=== PATIENT | female | born 1995 | race Two or more races ===

== ENCOUNTER 2019-01-20 15:46 | Emergency (ER) | payer OTHER ==
[~2019-01-20] VITALS: Ht 157.5 cm; Wt 73.5 kg
[2019-01-20 16:13] VITALS: Ht 157.5 cm; Wt 73.5 kg
[2019-01-20 18:03] LABS: BASOPHIL % 0.6 % (0-2); PLATELET COUNT 320 x10^3mcL (130-400); RED CELL DISTRIBUTION WIDTH 13.8 % (11.5-14.5)
[2019-01-20 18:08] LABS: CALCIUM 9.4 mg/dL (8.5-10.1); CARBON DIOXIDE 23.9 mmol/L (21-32); CHLORIDE SERUM 104 mmol/L (98-107); CREATININE SERUM 0.7 mg/dL (0.6-1.0); GFR1 > 60 mL/min; GLUCOSE SERUM 96 mg/dL (74-106); POTASSIUM SERUM 3.8 mmol/L (3.5-5.1); SODIUM SERUM 140 mmol/L (136-145)
[2019-01-20 18:12] LABS: ALBUMIN 3.7 g/dL (3.4-5.0); ALKALINE PHOSPHATASE 84 U/L (46-116); ALT/SGPT 29 U/L (14-59); AST/SGOT 11 U/L (15-37); BILIRUBIN TOTAL 0.47 mg/dL (0.20-1.00); LIPASE 113 IU/L (73-393); TOTAL PROTEIN, SERUM 8.2 g/dL (6.4-8.2)
[2019-01-20 18:48] LABS: UA SPECIFIC GRAVITY >=1.030 (1.005-1.035); microscopic required? YES; urine erythrocyte TRACE (NEGATIVE)
[2019-01-20 22:55] VITALS: BP 112/71
== END 2019-01-20 22:55 | disposition home or self-care (01) ==
LOC: ED 15:46
PROVIDERS: Emergency Medicine
DX: N39.0 Urinary tract infection, site not specified (principal); N83.201 Unspecified ovarian cyst, right side
CPT/HCPCS: J0696; J1885; J2270; J2405; J7030

== ENCOUNTER 2019-01-22 18:47 | Inpatient (IN) | payer OTHER ==
[~2019-01-22] VITALS: Ht 152.4 cm; Wt 74.0 kg
[2019-01-22 18:58] VITALS: Ht 152.4 cm; Wt 74.0 kg
--- NOTE | 2019-01-22 20:30 | NUR ---
PT C/O SHARP BILATERAL FLANK PAIN X1 DAY WITH 1 EPISODE OF VOMITING. PT DENIES ANY URINARY S/S HOWEVER STS SHE WAS RECENTLY D/C HERE WITH UTI, KIDNEY STONE, AND OVARIAN DX. PT AAOX4, RESPS E/U, SKIN PINK DRY AND WARM, -N/V AT THIS TIME, PT IN NAD, PLACED ON FULL CM, NSR, AWAITING MSE
--- NOTE | 2019-01-22 20:31 | NUR ---
PT STS NO RELIEF OF PAIN WITH AT HOME PAIN RX TRAMADOL AND MOTRIN
--- NOTE | 2019-01-22 20:35 | NUR ---
PT AMBULATORY WITH STEADY GAIT TO RESTROOM
--- NOTE | 2019-01-22 20:37 | NUR ---
PORTABLE CXR AT BEDSIDE
--- NOTE | 2019-01-22 20:37 | NUR ---
LAB AT BEDSIDE
--- NOTE | 2019-01-22 20:43 | NUR ---
EKG IN PROGRESS
[2019-01-22 20:45] LABS: microscopic required? NO
[2019-01-22 20:56] LABS: BASOPHIL % 0.5 % (0-2); PLATELET COUNT 334 x10^3mcL (130-400); RED CELL DISTRIBUTION WIDTH 13.7 % (11.5-14.5)
--- NOTE | 2019-01-22 20:56 | NUR ---
PT IN POSITION OF COMFORT, WARM BLANKET PROVIDED, RESPS E/U, VSS, PT MEDICATED PER EMAR AND MD ORDER, CALL LIGHT WITHIN REACH, WILL CONTINUE TO MONITOR
[2019-01-22 21:04] LABS: UA SPECIFIC GRAVITY 1.025 (1.005-1.035); urine erythrocyte NEGATIVE (NEGATIVE)
[2019-01-22 21:07] LABS: CARBON DIOXIDE 27.1 mmol/L (21-32); CHLORIDE SERUM 104 mmol/L (98-107); CREATININE SERUM 0.7 mg/dL (0.6-1.0); GFR1 > 60 mL/min; GLUCOSE SERUM 82 mg/dL (74-106); POTASSIUM SERUM 3.8 mmol/L (3.5-5.1); SODIUM SERUM 141 mmol/L (136-145)
[2019-01-22 21:11] LABS: ALBUMIN 3.7 g/dL (3.4-5.0); ALKALINE PHOSPHATASE 83 U/L (46-116); ALT/SGPT 26 U/L (14-59); AST/SGOT 12 U/L (15-37); BILIRUBIN TOTAL 0.33 mg/dL (0.20-1.00); TOTAL PROTEIN, SERUM 8.1 g/dL (6.4-8.2)
--- NOTE | 2019-01-22 21:31 | NUR ---
PT C/O 02/09 FLANK PAIN REQUESTING PAIN MEDICATION, RESPS E/U, IN NAD AT THIS TIME, NSR ON CM MD RIOS MADE AWARE
--- NOTE | 2019-01-22 21:52 | NUR ---
PT IN POSITION OF COMFORT, RESPS E/U, VSS LIGHTS DIMMED PER PT REQUEST AND COMFORT, CALL LIGHT WITHIN REACH
--- NOTE | 2019-01-22 22:11 | NUR ---
REPORT GIVEN TO VIKKI JUAREZOCTAVE BOARD RACKER RM [id number]
[2019-01-22 22:25] LABS: AMPHETAMINE QUAL UR NONE DETECTED (See below)
[2019-01-22 22:28] LABS: MAGNESIUM 2.1 mg/dL (1.8-2.4); PHOSPHOROUS 4.2 mg/dL (2.5-4.9)
[2019-01-22 22:34] VITALS: BP 137/78
[2019-01-22 22:37] LABS: T3 TOTAL 1.28 ng/mL
--- NOTE | 2019-01-22 22:37 | NUR ---
RECEIVED PT FROM ED VIA ALEJANDRA. ORIENTED PT TO ROOM AND SURROUNDINGS. IV NOTED TO RH PATENT AND INTACT. INSTRUCTED PT ON THE USE OF CALL LIGHT FOR ASSISTANCE. ENDORSED PT TO PRIMARY NURSE DARINEL
[2019-01-22 22:38] LABS: FREE T4 0.93 ng/dL (0.76-1.46); FREE THYROXINE INDEX 2.7 ug/dL (1.4-4.5); T4(THYROXINE) 8.4 ug/dL (4.7-13.3)
--- NOTE | 2019-01-22 22:40 | NUR ---
RECEIVED PT FROM LARRY SPRAGUE. PT AOX4. DENIES CYR/DIZZINESS. MED SURG PT, DENIES CP/PRESSURE. DENIES SOB/DIFFICULTY BREATHING, ON RA. IV TO R.HAND, INTACT AND PATENT. BED IN LOWEST POSITION. CALL LIGHT WITHIN REACH. WILL CONTINUE TO MONITOR.
[2019-01-22] MEDS ORDERED: KEFLEX500 M1 PO (22:44)
[2019-01-22] MEDS ORDERED: TRAMADOL HCL50 MG GT (22:44)
[2019-01-22] MEDS ORDERED: MOT600 PO (22:44)
--- NOTE | 2019-01-23 02:20 | NUR ---
PT RESTING IN BED. RR EVEN AND UNLABORED. IN NO ACUTE DISTRESS. CALL LIGHT WITHIN REACH. BED IN LOWEST POSITION. WILL CONTINUE TO MONITOR.
--- NOTE | 2019-01-23 03:20 | NUR ---
ASSUMED CARE OF PT. IN NO ACUTE DISTRESS. BED IN LOWEST POSITION. CALL LIGHT WITHIN REACH. WILL CONTINUE TO MONITOR.
[2019-01-23 05:59] VITALS: BP 110/68
[2019-01-23 08:43] LABS: BASOPHIL % 0.5 % (0-2); PLATELET COUNT 295 x10^3mcL (130-400); RED CELL DISTRIBUTION WIDTH 13.6 % (11.5-14.5)
[2019-01-23 09:07] LABS: CALCIUM 8.8 mg/dL (8.5-10.1); CARBON DIOXIDE 23.9 mmol/L (21-32); CHLORIDE SERUM 106 mmol/L (98-107); CREATININE SERUM 0.7 mg/dL (0.6-1.0); GFR1 > 60 mL/min; GLUCOSE SERUM 99 mg/dL (74-106); POTASSIUM SERUM 3.8 mmol/L (3.5-5.1); SODIUM SERUM 139 mmol/L (136-145)
[2019-01-23 09:51] VITALS: BP 128/44
--- NOTE | 2019-01-23 10:37 | NUR ---
AT 0720 - RECEIVED PATIENT FROM NIGHT NURSE. AWAKE, ALERT AND ORIENTED. NPO FOR POSSIBLE SURGERY. AT 0800 - SEEN BY DR RAINES. RECEIVED ORDER TO CONSENT COSNU[facility]O FOR SURGERY - DIAGNOSTIC LAPAROTOMY WITH POSSIBLE BILATERAL OVARIAN CYSTECTOMY. AT 0810 - CONSUELO HAS SIGNED CONSENT. PREPARED FOR SURGERY, INCLUDIGN CHLORHEXIDINE BODY WIPES. AT 0815 - IV INFUSION OF NS COMMENCED AT 70 ML/HR. REPROT GIVEN TO OR NURSE. SURGERY SCHEDULED FOR 1130. PATIENT MAY HAVE PAIN MEDICATION. AT 0834 - GIVEN MORPHINE 2 MG IV PER EMAR. AT 0855 - PATIENT TAKEN TO SURGERY.
--- NOTE | 2019-01-23 13:48 | NUR ---
AT 1135 - PATIENT BACK IN ROOM FOLLOWING EXPLORATORY LAPAROTOMY AND RIGHT OVARIAN CYSTECTOMY UNDER GENERAL AND LOCAL ANAESTHESIA. PATIENT IS AWAKE, ALERT AND ORIENTED. BP 104/59 HR 68 O2 SAT 95% ON 2L VIA NC. DRESSING TO LOWER ABDOMEN IS DRY AND INTACT. IV INFUSION OF NS RESUMED AT 70 ML/HR. AT 1232 - MEDICATED WITH IV MORPHINE PER EMAR FOR C/O PULLING PAIN IN LOWER ABDOMEN. AT 1315 - MEDICATED WITH IV ZOFRAN FOR NAUSEA AND VOMITING. PATIENT HAS CLEAR LIQUID DIET BUT HAS NOT YET HAD ANYTHING PO. AT 1330 - REPORTS FEELING BETTER.
--- NOTE | 2019-01-23 14:35 | NUR ---
AMBULATED TO BATHROOM AND BACK TO BED. VOIDED POS-OP. PARENTS AT BEDSIDE.
[2019-01-23 18:07] VITALS: BP 104/64
--- NOTE | 2019-01-23 19:05 | NUR ---
AT 1600 - PATIENT REQUESTED TO SPEAK WITH DR CANO. EXPRESSED WISH TO STAY IN HOSPITAL TODAY. DR CANO PER PHONE - OKAY FOR PATIENT TO STAY AND BE DISCHARGED TOMORROW. AT 1645 - MEDICATED WITH MORPHINE PER EMAR FOR ABDOMINAL PAIN. AT 1840 - AWAKE, ALERT AND ORIENTED. VSS. AFEBRILE. IV IFNSUING NS AT 70 ML/HR. TOLERATING CLEAR LIQUIDS PO. DRESSING REMAINS DRY AND INTACT. AMBULATES TO BATHROOM FOR TOILET NEEDS. ENCOURAGED USE OF INSENTIVE SPIROMETER. WILL ENDORSE CARE TO NIGHT NURSE.
--- NOTE | 2019-01-23 19:45 | NUR ---
PT A/A/O X4. DENIES DIZZINESS AND HEADACHE. BREATH SOUNDS CLEAR. BREATHING EVEN AND UNLABORED ON ROOM AIR. DENIES CHEST PAIN AND PRESSURE. BOWEL SOUNDS ACTIVE. NO C/O N/V AND C/O 5/10 LEVEL ABDOMINAL PAIN. DENIES NEED FOR PAIN MEDICATION THUS FAR. PT ADMITS TO BURPING, PASSING GAS AND VOIDING. DRESSING ON THE LOWER ABDOMEN C/D/I. IV INTACT ON THE RIGHT HAND INFUSING WITH NS AT 70 ML/HR. MADE PT COMFORTABLE. PLACED CALL LIGHT WITH IN REACH. WILL CONTINUE TO MONITOR.
--- NOTE | 2019-01-23 20:10 | NUR ---
PT VOMITED 500 ML OF BURGUNDY COLORED FLUID WITH COFFEE GROUND SEDIMENTS ON THE EMESIS BAG. DR. HERRON NOTIFIED. WILL CONTINUE TO MONITOR.
[2019-01-23 20:12] VITALS: BP 98/65
--- NOTE | 2019-01-23 20:24 | NUR ---
PT C/O NUMBNESS ON BLE WORSE ON LLE. PT DESCRIBING IT "FEELING PINS AND NEEDLES AT FIRST AND LOOSING SENSATION AFTER. PT ALSO STATED FEELING NUMBNESS ON BUE. PT EXPRESSED THE NUMBNESS STARTING AFTER VOMITING. DR HERRON NOTIFIED AND AT PATIENTS BEDSIDE WITH 2 OTHER DOCTORS ASSESSING THE PT. WILL CONTINUE TO MONITOR.
--- NOTE | 2019-01-23 20:46 | NUR ---
DR. WEIR AND DR. HERRON WITH 2 OTHER STUDENT DOCTORS SPEAKING WITH THE PT. WILL CONTINUE TO MONITOR.
--- NOTE | 2019-01-23 21:37 | NUR ---
PT WITH WARRANTY ADMINISTRATOR AT BEDSIDE. DRESSING ON THE ABDOMEN TAKEN OFF INTERMEDIATE ON THE LOWER ABDOMEN FOR WARRANTY ADMINISTRATOR TO BE ABLE TO SCAN THE PT. WILL REINFORCE DRESSING WHEN ULTRASOUND IS DONE.
[2019-01-23 21:47] LABS: CALCIUM 8.8 mg/dL (8.5-10.1); CARBON DIOXIDE 25.2 mmol/L (21-32); CHLORIDE SERUM 103 mmol/L (98-107); CREATININE SERUM 0.6 mg/dL (0.6-1.0); GFR1 > 60 mL/min; GLUCOSE SERUM 113 mg/dL (74-106); POTASSIUM SERUM 4.5 mmol/L (3.5-5.1); SODIUM SERUM 139 mmol/L (136-145)
--- NOTE | 2019-01-23 22:11 | NUR ---
DR. WEIR AND DR. MOSER AT PATIENTS BEDSIDE. WILL CONTINUE TO MONITOR.
--- NOTE | 2019-01-23 22:22 | NUR ---
PT STATING PAIN LEVEL IS STILL 8 OUT OF 10. GAVE PT NORCO PO. PT TOLERATED IT WELL. ULTRASOUND DONE. DRESSING ON THE LOWER ABDOMEN REINFORCED. WILL CONTINUE TO MONITOR.
--- NOTE | 2019-01-23 23:07 | NUR ---
DR. WEIR NOTIFIED VIA TELEPHONE OF PT HAVING CONTRACTIONS ON GABO CALVES WITH NUMBNESS MORE ON THE LEFT THAN THE RIGHT AND NOT BEING ABLE TO FREELY MOVE IT AND PT FEELING NUMBNESS ON GABO UPPER EXTREMITY STRONGER TO THE JETHRO THAT THE PT CAN NOT LIFT UP LEFT ARM AT ONE POINT.
--- NOTE | 2019-01-23 23:11 | NUR ---
DR. WEIR AND DR. MOSER AT PATIENTS BEDSIDE. WILL CONTINUE TO MONITOR.
--- NOTE | 2019-01-24 02:45 | NUR ---
PT RESTING WITH EYES CLOSED. NO DISTRESS AND DISCOMFORT NOTED. WILL CONTINUE TO MONITOR.
[2019-01-24 05:47] VITALS: BP 128/68; BP 98/66
--- NOTE | 2019-01-24 06:15 | NUR ---
PT RESTING WITH EYES CLOSED. EASILY AROUSABLE WITH VERBAL STIMULI. NO C/O PAIN THUS FAR. STILL C/O SOME NUMBNESS THAT MAKES PT HARD TO GET UP TO THE BEDSIDE COMMODE WITH OUT ASSIST. MADE PT COMFORTABLE. WILL ENDORSE TO THE AM NURSE ACCORDINGLY.
[2019-01-24 07:24] LABS: BASOPHIL % 0.2 % (0-2); PLATELET COUNT 300 x10^3mcL (130-400); RED CELL DISTRIBUTION WIDTH 13.6 % (11.5-14.5)
[2019-01-24 07:44] LABS: CALCIUM 8.9 mg/dL (8.5-10.1); CARBON DIOXIDE 21.9 mmol/L (21-32); CHLORIDE SERUM 106 mmol/L (98-107); CREATININE SERUM 0.6 mg/dL (0.6-1.0); GFR1 > 60 mL/min; GLUCOSE SERUM 96 mg/dL (74-106); POTASSIUM SERUM 3.6 mmol/L (3.5-5.1); SODIUM SERUM 140 mmol/L (136-145)
--- NOTE | 2019-01-24 08:33 | NUR ---
AT 0730 - RECEIVED PATIENT FROM NIGHT NURSE. AWAKE, ALERT AND ORIENTED. PATIENT REPROTS THAT NUMBNESS AND WEAKNESS IN LEFT ARM HAS IMPROVED. GOOD RADIAL ARM SAW OPERATOR BUT PATIENT STIL HAS SOME NUMBNESS AND WEAKNESS IN BLE WITH L>R. DRESSING TO LOWER ABDOMEN IS DRY AND INTACT. C/O SOME PAIN. DENEIS NAUSEA. SAT UP IN BED FOR CLEAR LIQUID BREAKFAST. AT 0740 - ASSISTED TO BEDSIDE COMODE TO VOID. PATIENT WAS ABLE TO STAND AND MAKE 2 STEPS. APPEARS TO HAVE MODERATE LLE WEAKNESS WITH SOME ASSOCIATED STIFFNESS. AT 0804 - MEDICATED WITH NORCO PER EMAR.
[2019-01-24 09:23] VITALS: BP 113/75
--- NOTE | 2019-01-24 10:13 | NUR ---
PATIENT REPORTS MODERATE RELIEF OF PAIN AFTER RECEIVING NORCO. HAS BEEN SEEN BY TAYLER CASTILLO. RECEIVED ORDER FOR PT EVAL.
[2019-01-24 12:34] VITALS: BP 113/75
--- NOTE | 2019-01-24 14:26 | NUR ---
AT 1120 - PATIENT AMBULATED WITH PHYSICAL THERAPY. PT RECOMMENDS HOME HEALTH FOR PT. AT 1240 - RECEIVED ORDER FOR DC HOME WITH HOME HEALTH. AT 1300 - PATIENT HAS EATEN LUNCH. HAS BEEN PROVIDED WITH WALKER FOR HOME USE. AT 1330 - DRESSING TO SURGICAL INCISION CHANGED. PHOTO DOCUMENTED. PATIENT INSTRUCTED IN CARE OF INCISION AND S&S OF INFECTION. PATIENT EXPRESSED CONCERN THAT SHE IS NOT GETTIGN A PRESCRIPTION FOR PAIN MEDICATION FOR HOME. ACCORDING TO CHARGE NURSE. TAYLER CASTILLO IS COMING BACK TO THE HOSPITAL AND WILL BE ASKED TO PROVIDE ONE. AT 1400 - PATIENT IS DRESSED AND RESTING ON THE BED.
--- NOTE | 2019-01-24 16:14 | NUR ---
GRACIEL UNABLE TO OBTAIN PRESCRIPTION FOR PAIN MEDICATIONS. PATIENT REFUSING TO BE DISCHARGED ON HOME MEDS OF MOTRIN AND TRAMADOL - SAYS THAT THEY "DON'T WORK". CALL PLACED FOR TAYLER CASTILLO TO NOTIFY.
[2019-01-24 17:08] VITALS: BP 126/84
--- NOTE | 2019-01-24 17:20 | NUR ---
PATIENT AMBULATED TO BATHROOM AND BACK TO BED USING WALKER. PATIENT CONTINUES TO EXPRESS CONCERN ABOUT GOING HOME WITHOUT PRESCRIPTION FOR "STRONGER PAIN MEDICATION".
--- NOTE | 2019-01-24 18:37 | NUR ---
ACCORDING TO CHARGE NURSE, PATIENT WILL BE STAYING IN HOSPITAL TONIGHT. VSS. AFEBRILE. TOLERATING REGULAR DIET. PAIN UNDER CONTROL WITH NORCO PER EMAR. WILL ENDORSE CARE TO NIGHT NURSE.
--- NOTE | 2019-01-24 20:13 | NUR ---
PT RESTING IN BED COMFORTABLY. DENIES PAIN AT THIS TIME. A/O X4, CALM AND COOPERATIVE. MED/SURG. DENIES CHEST PAIN, N/V, DIZZINESS, OR PALPATATIONS. PALPABLE PULSES, NO EDEMA NOTED. BREATHING EVEN AND UNLABORED ON RA. BOWEL SOUNDS ACTIVE X4. RLQ TENDERNESS ON PALPATION. LLE WEAKNESS NOTED. WALKER AT BEDSIDE. SURGICAL INCISION COVERED WITH ISLAND DRESSING, CDI. DENIES PAIN AT SURGICAL SITE. RH IV CDI. BED AT LOWEST POSITION. CALL LIGHT WITHIN REACH. WILL CONTINUE TO MONITOR.
[2019-01-24 21:54] VITALS: BP 102/56
--- NOTE | 2019-01-24 23:57 | NUR ---
PT COMPLAINING OF 8/10 PAIN IN ABD. MEDICATED WITH PRN NORCO. WILL MONITOR.
--- NOTE | 2019-01-25 | NUR ---
PT RESTING IN BED COMFORTABLY. NO S/S OF PAIN AT THIS TIME. BREATHING EVEN AND UNLABORED ON RA. BED AT LOWEST POSITION. CALL LIGHT WITHIN REACH. WILL CONTINUE TO MONITOR.
[2019-01-25 05:41] VITALS: BP 116/68
--- NOTE | 2019-01-25 06:34 | NUR ---
PT RESTING IN BED COMFORTABLY. DENIES PAIN AT THIS TIME. ABD BINDER PROVIDED THIS SHIFT. PT STATES INCREASED COMFORTABILITY WITH BINDER INTACT. NO SIGNIFICANT CHANGES THIS SHIFT. BED AT LOWEST POSITION. CALL LIGHT WITHIN REACH. WILL ENDORSE TO DAY NURSE.
--- NOTE | 2019-01-25 07:20 | NUR ---
RECEIVED PT FROM NOC RN. PT FOUND RESTING IN BED WITH BOTH EYES CLOSED. NO S/S OF ACUTE DISTRESS. EASILY AROUSABLE TO VERBAL STIMULI. FACE SYMMETRICAL. SPEECH CLEAR. SPEAKS [place]. AA/OX4. PERRLA, BRISK, SIZE 3 OU. COMPLAINT OF MILD NUMBNESS TO BLE, LEFT WORSE THAN RIGHT. REPORTS IMPROVEMENT SINCE YESTERDAY. USES WALKER TO AMBULATE. WALKER AT BEDSIDE. WOUND TO RIGHT PELVIS COVERED BY DRESSING CDI. ABDOMINAL BINDER IN PLACE. NO N/V. NO SOB ON ROOM AIR. CALM/COOPERATIVE. RR EVEN/UNLABORED. NO CHEST PAIN. INSTRUCTED TO USE CALL LIGHT TO CALL FOR ASSISTANCE PRN. VERBALIZED UNDERSTANDING. WILL CONTINUE TO MONITOR.
[2019-01-25 08:32] VITALS: BP 99/58
[2019-01-25] MEDS ORDERED: NORCO1 TA2 PO (08:47)
--- NOTE | 2019-01-25 10:19 | NUR ---
COMPLAINT OF NAUSEA, INTERMITTENT. NO VOMITING AT THIS TIME. GIVEN MEDICATION SEE MAR. NO FEVER. NO CHILLS. NO SOB ON ROOM AIR. NO S/S OF ACUTE DISTRESS. WILL MONITOR.
[2019-01-25 14:09] VITALS: BP 101/76
--- NOTE | 2019-01-25 14:57 | NUR ---
PT BEING DISCHARGED TO HOME. AWAKE, ALERT, ORIENTED X4. NO S/S OF ACUTE DISTRESS. NO COMPLAINT OF PAIN AT THIS TIME. NO CYR. NO DIZZINESS. NO N/V. NO CHILLS. NO FEVER. NO SOB ON ROOM AIR. WOUND TO PELVIS CLOSED WITH DERMABOND. SKIN SURROUNDING WOUND APPEARS DRY/INTACT WITH MILD/SCANT ERYTHEMA. NO DRAINAGE NOTED. DRESSING CDI. DISCHARGE EDUCATION PROVIDED TO PATIENT, INSTRUCTED TO MAKE FOLLOW UP APPT TO BE SEEN BY PHYSICIAN WITHIN ONE WEEK. PT VERBALIZED UNDERSTANDING. PRESCRIPTION NORCO PROVIDED TO PATIENT. BELONGINGS WITH PATIENT. WALKER TAKEN BY MOTHER. IV WNL TO RH, IV REMOVED, CATHETER IN TACT. PRESSURE APPLIED. SEE CHART FOR DISCHARGE WOUND PICTURE OF PELVIS.
== END 2019-01-25 14:56 | disposition home or self-care (01) | DRG 513 ==
LOC: ED 18:47 → MU 21:50
PROVIDERS: Emergency Medicine; Obstetrics & Gynecology; ADMIT General Practice
PROC: 0UB00ZZ Excision of Right Ovary, Open Approach (ICD-10-PCS; principal; 2019-01-23 11:30)
DX: N83.01 Follicular cyst of right ovary (principal); I10 Essential (primary) hypertension; N39.0 Urinary tract infection, site not specified
CPT/HCPCS: 84439; 94150; 97116-GP; 97530-GP; G0378; J0330; J0690; J1170; J1885; J2175; J2250; J2270; J2405; J2704; J3010; J3490; J7030; J7120; Q0092

== ENCOUNTER 2019-03-31 18:12 | Emergency (ER) | payer OTHER ==
[~2019-03-31] VITALS: Ht 157.5 cm; Wt 71.7 kg
[~2019-03-31 18:12] MED LIST: KEFLEX500 M1 PO; MOT600 PO; NORCO1 TA2 PO; TRAMADOL HCL50 MG GT
[2019-03-31 18:19] VITALS: Ht 157.5 cm; Wt 71.7 kg
[2019-03-31 21:49] VITALS: BP 111/71
== END 2019-03-31 21:49 | disposition home or self-care (01) ==
LOC: ED 18:12
DX: G43.909 Migraine, unspecified, not intractable, without status migrainosus (principal); G51.0 Bell's palsy
CPT/HCPCS: J1885; J2765

== ENCOUNTER 2019-11-16 16:23 | Emergency (ER) | payer OTHER ==
[~2019-11-16] VITALS: Ht 160 cm; Wt 74.4 kg
[2019-11-16 16:40] VITALS: Ht 160 cm; Wt 74.4 kg
[2019-11-16 17:22] VITALS: BP 130/86
== END 2019-11-16 17:22 | disposition home or self-care (01) ==
LOC: ED 16:23
DX: R05 Cough (principal); J45.909 Unspecified asthma, uncomplicated; G43.909 Migraine, unspecified, not intractable, without status migrainosus

== ENCOUNTER 2019-12-28 21:41 | Emergency (ER) | payer OTHER ==
[~2019-12-28] VITALS: Ht 157.5 cm; Wt 74.4 kg
[2019-12-28 21:49] VITALS: Ht 157.5 cm; Wt 74.4 kg
[2019-12-28 23:20] LABS: BASOPHIL % 0.6 % (0-2); PLATELET COUNT 367 x10^3mcL (130-400); RED CELL DISTRIBUTION WIDTH 12.7 % (11.5-14.5)
[2019-12-28 23:25] LABS: CALCIUM 9.1 mg/dL (8.5-10.1); CARBON DIOXIDE 30.6 mmol/L (21-32); CHLORIDE SERUM 101 mmol/L (98-107); CREATININE SERUM 0.7 mg/dL (0.6-1.0); GFR1 > 60 mL/min; GLUCOSE SERUM 95 mg/dL (74-106); POTASSIUM SERUM 3.8 mmol/L (3.5-5.1); SODIUM SERUM 137 mmol/L (136-145)
[2019-12-28 23:30] LABS: ALBUMIN 3.7 g/dL (3.4-5.0); ALT/SGPT 29 U/L (14-59); AST/SGOT 19 U/L (15-37); BILIRUBIN TOTAL 0.2 mg/dL (0.20-1.00); TOTAL PROTEIN, SERUM 7.9 g/dL (6.4-8.2)
[2019-12-28 23:58] LABS: ALKALINE PHOSPHATASE 87 U/L (46-116)
[2019-12-29 02:30] LABS: UA SPECIFIC GRAVITY 1.025 (1.005-1.035); microscopic required? YES; urine erythrocyte TRACE (NEGATIVE)
[2019-12-29 06:55] VITALS: BP 102/60
== END 2019-12-29 06:55 | disposition home or self-care (01) ==
LOC: ED 21:41
PROVIDERS: Emergency Medicine
DX: N12 Tubulo-interstitial nephritis, not specified as acute or chronic (principal); J45.909 Unspecified asthma, uncomplicated; G43.909 Migraine, unspecified, not intractable, without status migrainosus; Z87.442 Personal history of urinary calculi
CPT/HCPCS: J0696; J1885; J2270; J2405; Q0092

== ENCOUNTER 2020-06-10 19:02 | Emergency (ER) | payer OTHER, SELFPAY ==
[~2020-06-10] VITALS: Ht 157.5 cm; Wt 75.3 kg
[2020-06-10 20:12] VITALS: Ht 157.5 cm; Wt 75.3 kg
[2020-06-10 20:55] VITALS: BP 129/93
== END 2020-06-10 20:55 | disposition home or self-care (01) ==
LOC: ED 19:02
DX: U07.1 COVID-19 (principal); J45.909 Unspecified asthma, uncomplicated; G43.909 Migraine, unspecified, not intractable, without status migrainosus; G51.0 Bell's palsy; N83.209 Unspecified ovarian cyst, unspecified side
CPT/HCPCS: U0003